=== PATIENT | female | born 1980 | race African-American/Black ===

== ENCOUNTER 2017-09-10 18:07 | Emergency (ER) | payer MEDICAID ==
[~2017-09-10] VITALS: Ht 154.9 cm; Wt 44.9 kg
[~2017-09-10 18:07] MED LIST: BENTYL 20 MG TA20 M1 PO; BENTYL20 MG PO; CLONAZEPAM 0.50.5 M1; CLONAZEPAM 1 MG1 M1 PO; METOLAZONE; NEXIUM40 MG PO; NOHOMEMEDICATIONS; NORCO 5-325 TA1 EACH PO; PHENERGAN 25 MG25 M1 PO; PRENATAL; TRAMADOL 50 MG50 MG; ZOFRAN4 MG PO; ZOLOFT25 MG
[2017-09-10 19:02] LABS: URINE COLOR ORANGE
[2017-09-10 19:03] LABS: URINE CLARITY CLEAR; URINE SPECIFIC GRAVITY 1.003 (1.005-1.030)
[2017-09-10 19:05] LABS: ACETEST (KETONE CONFIRMATORY) Negative (Negative); ICTOTEST (BILI CONFIRMATORY) Negative (Negative); SSA (PROTEIN CONFIRMATORY) NEGATIVE (Negative); URINE REDUCING SUBSTANCE NEGATIVE (Negative)
[2017-09-10 19:11] LABS: CASTS None Seen /LPF (None Seen); CRYSTALS None Seen /LPF (None Seen); MUCUS None Seen strn/LPF (None Seen); SQUAMOUS 4-10 Moderate /LPF (0-3); URINE RBC 0-2 Rare /HPF (0-2)
[2017-09-10 19:12] LABS: BACTERIA-REFLEX 1-9 Few /HPF (None Seen); URINE WBC-REFLEX 0-5 Rare /HPF (0-5)
[2017-09-10 19:59] LABS: ABSOLUTE BASOPHILS 0.1 thou/uL (0.0-0.2); ABSOLUTE EOSINOPHILS 0.2 thou/uL (0.0-0.7); ABSOLUTE LYMPHOCYTES 3.9 thou/uL (0.8-5.3); ABSOLUTE MONOCYTES 0.5 thou/uL (0.0-1.2); ABSOLUTE NEUTROPHILS 4.8 thou/uL (1.6-8.1); BASOPHILS 0.9 %; EOSINOPHILS 2.4 %; HEMATOCRIT 39.7 % (37.0-47.0); HEMOGLOBIN 12.7 gm/dL (12.0-15.0); LYMPHOCYTES 41.1 %; MCH 24.8 pg (26.0-34.0); MCHC 31.9 g/dL (28.0-37.0); MCV 77.6 fL (80.0-100.0); MONOCYTES 5.2 %; MPV 8.1 fl. (7.2-11.1); NUCLEATED RBCS 0 /100WBC; PLATELET COUNT* 199 thou/uL (150-400); POLYS 50.4 %; RBC 5.11 mil/uL (4.20-5.00); RDW-CV 15.5 % (10.5-14.5); WBC 9.6 thou/uL (4.0-11.0)
[2017-09-10 20:12] LABS: CALCIUM 8.9 mg/dL (8.5-10.1); CREATININE 0.7 mg/dL (0.6-1.3); POTASSIUM 3.8 mmol/L (3.5-5.1)
[2017-09-10 20:38] LABS: ALBUMIN 3.7 g/dL (3.4-5.0); TOTAL BILIRUBIN 0.3 mg/dL (<0.1-1.0); TOTAL PROTEIN 6.8 g/dL (6.4-8.2)
[2017-09-10] MEDS ORDERED: FLAGYL500 MG PO (20:49)
[2017-09-10 21:13] VITALS: BP 104/48
== END 2017-09-10 21:15 | disposition home or self-care (01) ==
LOC: M.ERS 18:07
PROVIDERS: Nurse Practitioner Family
DX: N76.0 Acute vaginitis (principal); B96.89 Other specified bacterial agents as the cause of diseases classified elsewhere; E11.9 Type 2 diabetes mellitus without complications; F41.9 Anxiety disorder, unspecified; F32.9 Major depressive disorder, single episode, unspecified

== ENCOUNTER 2018-07-11 08:17 | Emergency (ER) | payer OTHER ==
[~2018-07-11] VITALS: Ht 154.9 cm; Wt 44.5 kg
[~2018-07-11 08:17] MED LIST changes: +FLAGYL500 MG PO
[2018-07-11] MEDS ORDERED: LEXAPRO 10 MG T10 M2 PO (08:37)
[2018-07-11] MEDS ORDERED: CLONAZEPAM 0.50.5 M1 PO (08:38)
[2018-07-11 08:42] LABS: URINE BILIRUBIN NEGATIVE (Negative); URINE BLOOD 2+ (Negative); URINE CLARITY CLEAR; URINE COLOR YELLOW; URINE GLUCOSE-RANDOM NEGATIVE (Negative); URINE KETONES NEGATIVE (Negative); URINE LEUKOCYTES-REFLEX NEGATIVE (Negative); URINE NITRITE-REFLEX NEGATIVE (Negative); URINE PROTEIN NEGATIVE (Negative); URINE UROBILINOGEN 0.2 E.U./dl (0.2-1.0)
[2018-07-11 08:47] LABS: SQUAMOUS 4-10 Moderate /LPF (0-3)
[2018-07-11 08:48] LABS: URINE RBC 3-10 Few /HPF (0-2); URINE WBC-REFLEX 0-5 Rare /HPF (0-5)
[2018-07-11 08:49] LABS: BACTERIA-REFLEX 1-9 Few /HPF (None Seen); CASTS None Seen /LPF (None Seen); CRYSTALS None Seen /LPF (None Seen); MUCUS 0-3 Light strn/LPF (None Seen)
[2018-07-11 09:09] LABS: ABSOLUTE BASOPHILS 0.1 thou/uL (0.0-0.2); ABSOLUTE EOSINOPHILS 0.1 thou/uL (0.0-0.7); ABSOLUTE MONOCYTES 0.4 thou/uL (0.0-1.2); ABSOLUTE NEUTROPHILS 5.4 thou/uL (1.6-8.1); EOSINOPHILS 1.3 %; HEMATOCRIT 39.4 % (37.0-47.0); HEMOGLOBIN 12.9 gm/dL (12.0-15.0); LYMPHOCYTES 24.7 %; MCH 25.4 pg (26.0-34.0); MCHC 32.7 g/dL (28.0-37.0); MCV 77.7 fL (80.0-100.0); MONOCYTES 4.7 %; MPV 8.4 fl. (7.2-11.1); NUCLEATED RBCS 0 /100WBC; PLATELET COUNT* 212 thou/uL (150-400); POLYS 68.3 %; RBC 5.07 mil/uL (4.20-5.00); RDW-CV 15.2 % (10.5-14.5); WBC 7.9 thou/uL (4.0-11.0)
[2018-07-11 09:16] LABS: CALCIUM 8.9 mg/dL (8.5-10.1); CREATININE 0.8 mg/dL (0.6-1.3); POTASSIUM 4.6 mmol/L (3.5-5.1)
[2018-07-11 09:20] LABS: ALBUMIN 3.7 g/dL (3.4-5.0); TOTAL BILIRUBIN 0.3 mg/dL (<0.1-1.0); TOTAL PROTEIN 6.9 g/dL (6.4-8.2)
[2018-07-11] MEDS ORDERED: HYDROCODONE-AP1 EAC6 PO (10:45)
[2018-07-11] MEDS ORDERED: ZOFRAN ODT4 MG DISSOLVE (10:45)
[2018-07-11 10:50] VITALS: BP 100/71
== END 2018-07-11 10:51 | disposition home or self-care (01) ==
LOC: M.ERS 08:17
PROVIDERS: Emergency Medicine Emergency Medical Services
DX: R10.84 Generalized abdominal pain (principal); R19.7 Diarrhea, unspecified; G43.909 Migraine, unspecified, not intractable, without status migrainosus; F41.9 Anxiety disorder, unspecified; F32.9 Major depressive disorder, single episode, unspecified; F17.210 Nicotine dependence, cigarettes, uncomplicated

== ENCOUNTER 2018-09-02 09:11 | Emergency (ER) | payer OTHER ==
[~2018-09-02] VITALS: Ht 154.9 cm; Wt 46.7 kg
[~2018-09-02 09:11] MED LIST changes: +CLONAZEPAM 0.50.5 M1 PO; +HYDROCODONE-AP1 EAC6 PO; +LEXAPRO 10 MG T10 M2 PO; +ZOFRAN ODT4 MG DISSOLVE
[2018-09-02] MEDS ORDERED: FLEXERIL PO (10:54)
[2018-09-02] MEDS ORDERED: HYDROCODONE-AP1 EAC6 PO (10:54)
[2018-09-02 11:02] VITALS: BP 111/67
== END 2018-09-02 11:03 | disposition home or self-care (01) ==
LOC: M.ERS 09:11
DX: S46.092A Other injury of muscle(s) and tendon(s) of the rotator cuff of left shoulder, initial encounter (principal); F17.200 Nicotine dependence, unspecified, uncomplicated; G43.909 Migraine, unspecified, not intractable, without status migrainosus; F41.9 Anxiety disorder, unspecified; F32.9 Major depressive disorder, single episode, unspecified; X50.1XXA Overexertion from prolonged static or awkward postures, initial encounter; Y92.89 Other specified places as the place of occurrence of the external cause; Y93.89 Activity, other specified; Y99.8 Other external cause status

== ENCOUNTER 2021-01-08 04:55 | Emergency (ER) | payer OTHER, MEDICAID ==
[~2021-01-08] VITALS: Ht 154.9 cm; Wt 48.1 kg
[~2021-01-08 04:55] MED LIST changes: +FLEXERIL PO
[2021-01-08 05:06] VITALS: BP 109/43
== END 2021-01-08 05:35 | disposition left against medical advice (07) ==
LOC: M.ERS 04:55
DX: R10.84 Generalized abdominal pain (principal); G43.909 Migraine, unspecified, not intractable, without status migrainosus

== ENCOUNTER 2021-04-19 10:23 | Emergency (ER) | payer OTHER, MEDICAID ==
[~2021-04-19] VITALS: Ht 154.9 cm; Wt 49.9 kg
[2021-04-19] MEDS ORDERED: FLEXERIL PO (12:12)
[2021-04-19 12:19] VITALS: BP 121/70
== END 2021-04-19 12:20 | disposition home or self-care (01) ==
LOC: M.ERS 10:23
DX: S70.02XA Contusion of left hip, initial encounter (principal); F41.9 Anxiety disorder, unspecified; F32.9 Major depressive disorder, single episode, unspecified; G43.909 Migraine, unspecified, not intractable, without status migrainosus; F17.210 Nicotine dependence, cigarettes, uncomplicated; W22.8XXA Striking against or struck by other objects, initial encounter; Y93.89 Activity, other specified; Y92.89 Other specified places as the place of occurrence of the external cause; Y99.8 Other external cause status

== ENCOUNTER 2021-06-27 22:04 | Emergency (ER) | payer OTHER, MEDICAID ==
[~2021-06-27] VITALS: Ht 154.9 cm; Wt 52.2 kg
[2021-06-27] MEDS ORDERED: WOMEN'S DAILY1 EAC5 PO (22:22)
[2021-06-27 22:50] LABS: URINE BILIRUBIN NEGATIVE (Negative); URINE BLOOD 2+ (Negative); URINE CLARITY CLEAR; URINE COLOR YELLOW; URINE GLUCOSE-RANDOM NEGATIVE (Negative); URINE KETONES NEGATIVE (Negative); URINE LEUKOCYTES-REFLEX NEGATIVE (Negative); URINE NITRITE-REFLEX NEGATIVE (Negative); URINE PROTEIN NEGATIVE (Negative); URINE UROBILINOGEN 0.2 E.U./dl (0.2-1.0)
[2021-06-27 23:16] LABS: BACTERIA-REFLEX 1-9 Few /HPF (None Seen); CASTS None Seen /LPF (None Seen); CRYSTALS None Seen /LPF (None Seen); SQUAMOUS 4-10 Moderate /LPF (0-3); URINE RBC 3-10 Few /HPF (0-2); URINE WBC-REFLEX 0-5 Rare /HPF (0-5)
[2021-06-27 23:26] LABS: ABSOLUTE BASOPHILS 0.1 thou/uL (0.0-0.2); ABSOLUTE EOSINOPHILS 0.3 thou/uL (0.0-0.7); ABSOLUTE LYMPHOCYTES 2.5 thou/uL (0.8-5.3); ABSOLUTE MONOCYTES 0.6 thou/uL (0.0-1.2); ABSOLUTE NEUTROPHILS 4.9 thou/uL (1.6-8.1); EOSINOPHILS 3.7 %; HEMATOCRIT 36.1 % (37.0-47.0); HEMOGLOBIN 11.8 gm/dL (12.0-15.0); LYMPHOCYTES 29.5 %; MCH 25.2 pg (26.0-34.0); MCHC 32.6 g/dL (28.0-37.0); MCV 77.5 fL (80.0-100.0); MONOCYTES 7.2 %; MPV 7.1 fl. (7.2-11.1); NUCLEATED RBCS 0 /100WBC; PLATELET COUNT* 214 thou/uL (150-400); POLYS 58.6 %; RBC 4.66 mil/uL (4.20-5.00); RDW-CV 14.9 % (10.5-14.5); WBC 8.4 thou/uL (4.0-11.0)
[2021-06-27 23:32] LABS: AMP/METHAMP Negative (Negative); BARBITURATES Negative (Negative); BENZODIAZEPINES Negative (Negative); COCAINE Negative (Negative); METHADONE Negative (Negative); OPIATES Negative (Negative); PCP Negative (Negative); THC POSITIVE (Negative)
[2021-06-27 23:33] LABS: CALCIUM 8.5 mg/dL (8.5-10.1); CREATININE 0.9 mg/dL (0.6-1.3); POTASSIUM 3.8 mmol/L (3.5-5.1)
[2021-06-28 03:20] VITALS: BP 106/72
--- NOTE | 2021-06-28 11:14 | EKG ---
[place] [address] ELECTROCARDIOGRAM REPORT Name: MIHIR EDWARDS [id number] Admission: 06/27/21 Attend Phys: Discharge: 06/28/21 Date of : 80 Date of Service: 06/28/21203 Report #: [id number] THIS REPORT FOR: //name// [facility] ED Test Date: 2021-06-28 Test Time: 02:04:06 Pat Name: MIHIR EDWARDS Department: Room: Gender: [employer] Controller: : 1980 Requested By: Roopa Yap Order Number: [id number] Reading MD: Christian Park Measurements Intervals [place] Rate: 59 P: 75 [place]: 193 QRS: 58 QRSD: 95 T: 65 QT: 414 QTc: 411 Interpretive Statements Sinus rhythm No previous ECG available for comparison Electronically Signed On 06-28-2021 11:14:37 [employer] by Christian Park [email or web address] <ELECTRONICALLY SIGNED> By: Christian Park MD, [facility] 06/28/21 1114 3 [id number] Christian Park MD, FACC /EPI
== END 2021-06-28 03:20 | disposition left against medical advice (07) ==
LOC: M.ERS 22:04
PROVIDERS: Emergency Medicine
DX: I77.72 Dissection of iliac artery (principal); Z20.822 Contact with and (suspected) exposure to COVID-19; G43.909 Migraine, unspecified, not intractable, without status migrainosus; F41.9 Anxiety disorder, unspecified; F32.9 Major depressive disorder, single episode, unspecified; F17.210 Nicotine dependence, cigarettes, uncomplicated

== ENCOUNTER 2021-06-28 11:41 | Emergency (ER) | payer OTHER, MEDICAID ==
[~2021-06-28] VITALS: Ht 154.9 cm; Wt 52.2 kg
[~2021-06-28 11:41] MED LIST changes: +WOMEN'S DAILY1 EAC5 PO
[2021-06-28 12:03] VITALS: BP 127/82
== END 2021-06-28 12:41 | disposition left against medical advice (07) ==
LOC: M.ERS 11:41
DX: R10.9 Unspecified abdominal pain (principal); G43.909 Migraine, unspecified, not intractable, without status migrainosus; E11.9 Type 2 diabetes mellitus without complications; F41.9 Anxiety disorder, unspecified; F32.9 Major depressive disorder, single episode, unspecified; Z53.21 Procedure and treatment not carried out due to patient leaving prior to being seen by health care provider